=== PATIENT | male | born 1950 | race Caucasian/White ===

== ENCOUNTER 2018-08-18 12:18 | Emergency (ER) | payer MEDICARE, OTHER ==
--- NOTE | 2018-08-18 12:44 | ER Document Report ---
ED Medical Screen (RME) - General Chief Complaint: Laceration Stated Complaint: LACERATION TO LEFT HAND Time Seen by Provider: 08/18/18 12:38 Notes: Patient is a 68-year-old male that presents to the emergency department for chief complaint of left hand laceration. Patient reports that around 1030 this morning he was cutting a piece of aluminum piping, and he kicked off the saw, and hit his left palm, causing laceration, he went to urgent care, but they did not want to repair it because his blood pressure was high and they gave him a dose of clonidine and sent him to the ED. He states he is always had high blood pressure, but is not currently taking medication for. Denies having any chest pain or changes in his urinary patterns. Currently denies any pain, his last tetanus was about 8 years ago.. ROS: Other than noted above, the 12 point review of systems was reviewed with the patient and were negative, all pertinent findings are included in the HPI. PHYSICAL EXAMINATION: Vital signs reviewed. GENERAL: Well-appearing, well-nourished and in no acute distress. HEAD: Atraumatic, normocephalic. EYES: Pupils equal round extraocular movements intact, conjunctiva are normal. ENT: Nares patent NECK: Normal range of motion CV: Heart regular rate and rhythm LUNGS: No respiratory distress Musculoskeletal: Deep laceration to the thenar eminence of the palm on the left side, tendon function appears to be intact on my exam. NEUROLOGICAL: Normal speech PSYCH: Normal mood, normal affect. MDM: Patient seen and examined for rapid initial assessment. Vital signs reviewed. A comprehensive ED assessment and evaluation of the patient, analysis of test results and completion of the medical decision making process will be conducted by additional ED providers. *Note is created using voice recognition software and may contain spelling, syntax or grammatical errors. TRAVEL OUTSIDE OF THE [place] IN LAST 30 DAYS: No - Related Data Allergies/Adverse Reactions: No Known Allergies Allergy (Unverified 08/18/18 12:20) Physical Exam - Vital signs Vitals: Temp Pulse Resp BP Pulse Ox 98.5 F 98 20 206/106 H 96 08/18/18 12:27 08/18/18 12:27 08/18/18 12:27 08/18/18 12:27 08/18/18 12:27 Course - Vital Signs Vital signs: Temp Pulse Resp BP Pulse Ox 98.5 F 98 20 206/106 H 96 08/18/18 12:27 08/18/18 12:27 08/18/18 12:27 08/18/18 12:27 08/18/18 12:27
[2018-08-18] MEDS ORDERED: DIPH/PERTUSS(ACELL)/TETANUS VAC/PF 0.5 ML SYR (>=10YO) IM ONE ×2 (12:45→15:00)
[2018-08-18] MEDS ORDERED: LIDOCAINE 1% INJ-PF (10 MG/ML) 30 ML SDV INJ ONE (12:45)
--- NOTE | 2018-08-18 14:00 | RADIOLOGY REPORT (SQ) ---
EXAM DESCRIPTION: HAND LEFT 3 VIEWS COMPLETED DATE/TIME: 08/18/2018 1:49 pm REASON FOR STUDY: laceration to left palm, metal COMPARISON: None. EXAM PARAMETERS: NUMBER OF VIEWS: Three views. TECHNIQUE: AP, lateral and oblique radiographic images acquired of the left hand. LIMITATIONS: None. FINDINGS: MINERALIZATION: Normal. BONES: No acute fracture or dislocation. Severe degenerative changes in the 4th PIP. JOINTS: No effusion. SOFT TISSUES: Palm are soft tissue swelling. No radiopaque foreign body. OTHER: No other significant finding. IMPRESSION: NO FRACTURE.No radiopaque foreign body. TECHNICAL DOCUMENTATION: JOB ID: [id number] [id number] 2010 [employer]- All Rights Reserved Reading location - IP/workstation name: [email or web address]
--- NOTE | 2018-08-18 14:58 | ER Document Report ---
Addendum entered and electronically signed by EILEEN EUCEDA PA-C 08/19/18 18:24: Procedures - Laceration/Wound Repair Hand Wound length (cm): 6 Wound's Depth, Shape: Irregular, Other - V shaped with overlying abraded tissue Laceration pre-procedure: Sterile PPE donned, Sterile drapes applied, Shur-Clens applied Anesthetic type: 1% Lidocaine Volume Anesthetic (mLs): 5 Wound explored: Clean Irrigated w/ Saline (mLs): 300 Wound Debrided: Extensive Wound Repaired With: Sutures Suture Size/Type: 4:0, Ethilon Number of Sutures: 8 Post-procedure wound care: Sterile dressing applied Post-procedure NV exam normal: Yes Complications: No Original Note: ED General - General Chief Complaint: Laceration Stated Complaint: LACERATION TO LEFT HAND Time Seen by Provider: 08/18/18 12:38 TRAVEL OUTSIDE OF THE [place] IN LAST 30 DAYS: No - HPI Notes: Patient presents the emergency department for evaluation. He was cutting metal with a miter saw. It kicked back and he sustained laceration to his left hand. He actually went to urgent care to have this closed. They noted that his blood pressure was over 200 systolic. They refused to close the wound. He was given 1 dose of clonidine and sent to the emergency department for further evaluation. The patient's last tetanus shot was ago. He states he has had blood pressure for "several years." He states he was hospitalized once and they treated his blood pressure and he "passed out." He states he is not following with her regular doctor now. He denies any visual changes. No difficulty seeing or swallowing. No chest pain or shortness of breath. He has no pain beyond the minor pain in his hand. He is urinating without difficulty, no change in urination. No other acute complaints or concerns. - Related Data Allergies/Adverse Reactions: No Known Allergies Allergy (Unverified 08/18/18 12:20) Past Medical History - General Information source: Patient - Social History Smoking Status: Former Smoker Family History: Hypertension Patient has suicidal ideation: No Patient has homicidal ideation: No - Past Medical History Cardiac Medical History: Reports: Hx Hypertension Pulmonary Medical History: Reports: Hx COPD Renal/ Medical History: Denies: Hx Peritoneal Dialysis Review of Systems - Review of Systems Constitutional: No symptoms reported EENT: No symptoms reported Cardiovascular: No symptoms reported Respiratory: No symptoms reported Gastrointestinal: No symptoms reported Genitourinary: No symptoms reported Musculoskeletal: No symptoms reported Skin: No symptoms reported, See HPI Neurological/Psychological: No symptoms reported Physical Exam - Vital signs Vitals: Temp Pulse Resp BP Pulse Ox 98.5 F 98 20 206/106 H 96 08/18/18 12:27 08/18/18 12:27 08/18/18 12:27 08/18/18 12:27 08/18/18 12:27 Interpretation: Hypertensive - Notes Notes: Vital signs reviewed, please refer to chart. Patient is normocephalic, atraumatic. Pupils equal round, reactive to light. Neck is supple without meningismus. Heart is regular rate and rhythm. Lungs are clear to auscultation bilaterally. Abdomen is soft, nontender, normoactive bowel sounds throughout. Extremities without cyanosis, clubbing, edema. Peripheral pulses are equal. Patient is awake, alert, neurological exam is nonfocal. Supination of the left upper extremity reveals 2 lacerations to the palmar aspect of the hand. One is V-shaped, the second is linear. Please refer to procedure note for full details. There is no violation of tendons on exploration of the wound. The patient has full range of motion of the elbow, wrist, fingers, thumb. Sensation is intact. Radial pulse is 2+. Course - Re-evaluation Re-evalutation: 08/18/18 14:55 Patient presents the emergency department for evaluation. His blood pressure is not new, it is long-standing. He has absolutely no signs of endorgan damage. He states his been known to be over 200 systolic for several years. I discussed with him at length the increased risk to his health that is associated with this. We talked about the risk of heart attack, stroke, sudden cardiac . He voiced understanding to all of this. He states he will follow-up with primary care. Attention was then turned to the laceration. X-ray failed to reveal any signs of a radiopaque foreign body. The wound was closed by DORI Euceda here in the emergency department. Please refer to separate procedure note for details. Patient tolerated this well. He is to return to the emergency department with worsening or new concerning symptoms of any sort. - Vital Signs Vital signs: Temp Pulse Resp BP Pulse Ox 98.5 F 98 20 206/106 H 96 08/18/18 12:27 08/18/18 12:27 08/18/18 12:27 08/18/18 12:27 08/18/18 12:27 - Diagnostic Test Radiology reviewed: Image reviewed, Reports reviewed - No radiopaque foreign body, no obvious fracture Discharge - Discharge Clinical Impression: Laceration of left hand, Hypertension Condition: Stable Instructions: Antibiotic Ointment Protection ([facility]), Laceration Care ([facility]), Tetanus Immunization Given ([facility]) Additional Instructions: Keep wound clean with soap and water. Do not submerge wound in standing water. Have sutures removed in 7-10 days. If you develop increased redness, pain, fevers, drainage, or any other new concerning symptoms, return immediately to the emergency department for reevaluation. Your blood pressure was elevated here in the emergency department today. This can increase your chance of heart attack, stroke, other significant medical conditions. It is important you follow-up with primary care for management of this high blood pressure. Forms: Elevated Blood Pressure
[2018-08-18 15:37] VITALS: BP 187/108
== END 2018-08-18 15:37 | disposition home or self-care (01) ==
LOC: ER 12:18
DX: S61.412A Laceration without foreign body of left hand, initial encounter (principal); W29.8XXA Contact with other powered hand tools and household machinery, initial encounter; Y93.89 Activity, other specified; I10 Essential (primary) hypertension; J44.9 Chronic obstructive pulmonary disease, unspecified; Z87.891 Personal history of nicotine dependence
CPT/HCPCS: 99282; 90471; 73130; 90715; 12002; J3490